=== PATIENT | male | born 1950 | race Caucasian/White ===

== ENCOUNTER 2021-05-10 10:53 | Emergency (ER) | payer OTHER ==
[2021-05-10 10:59] VITALS: TEMP 97; BMI 22.6
[2021-05-10 13:12] LABS: BASO % 1.4 % (0-2.0); EOS % 3.2 % (0-4.5); HEMATOCRIT 47.2 % (35.4-49); HEMOGLOBIN 15.7 GM/dL (11.7-16.9); LYMPH % 40.3 % (8-40); MCHC 33.3 g/dl (32.0-35.9); MEAN PLT VOLUME 9.6 fl (7.5-11.1); MONO % 12.5 % (3.8-10.2); NEUT % 42.6 % (42.8-82.8); PLATELET COUNT 158 10^3/uL (134-434); RBC 5.25 M/mm3 (4.00-5.60); RDW 13.6 % (11.9-15.9); WHITE BLOOD COUNT 4.9 K/mm3 (4.0-10.0)
[2021-05-10 13:21] LABS: INR 0.99 (0.83-1.09); PROTHROMBIN TIME (PATIENT) 12.2 SEC (9.7-13.0)
[2021-05-10 13:45] LABS: CHLORIDE 108 mmol/L (98-107); SODIUM 139 mmol/L (136-145)
[2021-05-10 13:47] LABS: CALCIUM 8.8 mg/dL (8.5-10.1)
[2021-05-10 13:48] LABS: ALBUMIN 3.6 g/dl (3.4-5.0); ANION GAP 6 MMOL/L (8-16); BLOOD UREA NITROGEN 14.3 mg/dL (7-18); CO2 25 mmol/L (21-32); GLUCOSE,RANDOM 73 mg/dL (74-106)
[2021-05-10 13:51] LABS: CREATININE 1.2 mg/dL (0.55-1.3); SGOT/AST 12 U/L (15-37); SGPT/ALT 16 U/L (13-61)
[2021-05-10 13:53] LABS: BILIRUBIN,TOTAL 0.6 mg/dL (0.2-1)
[2021-05-10 13:54] LABS: ALK PHOS 54 U/L (45-117)
[2021-05-10 18:23] VITALS: BP 115/56; PULSE 61
== END 2021-05-10 18:00 | disposition home or self-care (01) ==
LOC: JER 10:53
DX: K62.5 Hemorrhage of anus and rectum (principal)
CPT/HCPCS: 36415; 71045-TC-FY; 74174-TC; 80053; 82272; 82550; 84439; 84443; 84484; 85025; 85610; 85730; 86850; 86900; 86901; 93005; 93010; 99285-25